=== PATIENT | male | born 1960 | race Hispanic/Latino ===

== ENCOUNTER 2021-05-16 11:48 | Outpatient (CLI) | payer BC | END 2021-05-16 11:49 | disposition home or self-care (01) | LOC: SCSRAD 11:48 | PROVIDERS: ATTEND Nurse Practitioner Family | DX: M25.552 Pain in left hip (principal) | CPT/HCPCS: 72170 ==

== ENCOUNTER 2022-08-14 09:58 | Outpatient (CLI) | payer BC | END 2022-08-14 09:59 | disposition home or self-care (01) | LOC: SCSMRI 09:58 | PROVIDERS: ATTEND Family Medicine | DX: M51.16 Intervertebral disc disorders with radiculopathy, lumbar region (principal); M47.817 Spondylosis without myelopathy or radiculopathy, lumbosacral region | CPT/HCPCS: 72148 ==

== ENCOUNTER 2022-10-09 08:36 | Outpatient (CLI) | payer BC ==
[2022-10-09 09:19] LABS: Hemoglobin 14.5 g/dL (13.5-17.5); Mean Corpuscular HGB CONC 32.7 g/dL (32.0-36.0); Mean Corpuscular Volume 82.5 fl (81.2-95.1); Mean Platelet Volume 10.4 fl (7.4-10.4); Platelet Count 323 10x3/uL (150-450); RBC Distribution Width 15.3 % (11.5-14.5); Red Blood Cell (RBC) Count 5.37 10x6/uL (4.32-5.72)
[2022-10-09 09:40] LABS: PTT 52.7 sec (22.0-33.0); Prothrombin Time 10.9 sec (9.5-12.1)
[2022-10-09 09:53] LABS: Anion Gap 14 mmol/L (10-20); BUN (Urea Nitrogen) 13 mg/dL (8.4-25.7); Calc. Creatinine Clearance 0 mL/min (70-130); Calcium 9.3 mg/dL (7.8-10.44); Carbon Dioxide 24 mmol/L (23-31); Chloride 105 mmol/L (98-107); Estimated GFR 98; Glucose 90 mg/dL (80-115); Potassium 4.1 mmol/L (3.5-5.1); Sodium 139 mmol/L (136-145)
== END 2022-10-09 08:37 | disposition home or self-care (01) ==
LOC: LABBT 08:36
PROVIDERS: ATTEND Surgery
DX: Z01.818 Encounter for other preprocedural examination (principal); M51.26 Other intervertebral disc displacement, lumbar region; M48.062 Spinal stenosis, lumbar region with neurogenic claudication; M54.16 Radiculopathy, lumbar region
CPT/HCPCS: 80048; 85027; 85610; 85730; 93005; 93010

== ENCOUNTER 2022-10-13 10:07 | Observation (INO) | payer BC ==
[2022-10-12 10:04] VITALS: BMI 30.5
[2022-10-13] MEDS ORDERED: Vancomycin 1 GM VIAL ONE (12:35)
[2022-10-13] MEDS ORDERED: Thrombin 5000 UNITS/5 ML VIAL ONE (12:35)
[2022-10-13] MEDS ORDERED: HYDROmorphone 0.5 MG/0.5 ML SYRINGE ONE (12:39)
[2022-10-13] MEDS ORDERED: fentaNYL PF 100 MCG/2 ML SYRINGE ONE (12:39)
[2022-10-13] MEDS ORDERED: CEFAZOLIN 2 GM VIAL ONE (12:42)
[2022-10-13] MEDS ORDERED: Sodium Chloride 0.9% 100 ML ONE (12:42)
[2022-10-13] MEDS ORDERED: Lidocaine 1% PF 5 ML VIAL ONE (12:51)
[2022-10-13] MEDS ORDERED: Glycopyrrolate 0.2 MG/ML 5 ML SYRINGE ONE (12:51)
[2022-10-13] MEDS ORDERED: ePHEDrine 50 MG/ML VIAL ONE (12:51)
[2022-10-13] MEDS ORDERED: Ketorolac Tromethamine 30 MG/ML VIAL ONE (12:51)
[2022-10-13] MEDS ORDERED: Ondansetron PF 4 MG/2 ML Vial ONE (12:51)
[2022-10-13] MEDS ORDERED: PHENYLEPHRINE-NS 100 MCG/ML 10 ML SYRINGE ONE (12:51)
[2022-10-13] MEDS ORDERED: Dexamethasone 20 MG/5 ML VIAL ONE (12:51)
[2022-10-13] MEDS ORDERED: PROPOFOL 200 MG/20 ML VIAL ONE (12:51)
[2022-10-13] MEDS ORDERED: Rocuronium Bromide 10 MG/ML (10ML VIAL) ONE (12:51)
[2022-10-13] MEDS ORDERED: SUGAMMADEX SODIUM 200 MG/2 ML VIAL ONE (14:38)
[2022-10-13] MEDS ORDERED: Morphine 2 MG/ML VIAL SLOW IVP PRN (15:20)
[2022-10-13] MEDS ORDERED: Acetaminophen 325 MG TAB PO PRN (15:20)
[2022-10-13] MEDS ORDERED: diphenhydrAMINE 25 MG CAP PO PRN (15:20)
[2022-10-13] MEDS ORDERED: traMADol HCl 50 MG TAB PO PRN (15:20)
[2022-10-13] MEDS ORDERED: Ondansetron PF 4 MG/2 ML Vial IVP PRN (15:20)
[2022-10-13] MEDS ORDERED: Acetaminophen/Codeine 30-300mg Tablet PO PRN (15:20)
[2022-10-13] MEDS ORDERED: tiZANidine HCl 4 MG TAB PO PRN (15:22)
[2022-10-13] MEDS ORDERED: hydrALAZINE 20 MG/ML VIAL SLOW IVP PRN (15:22)
[2022-10-13] MEDS ORDERED: CEFAZOLIN 2 GM in Sodium Chloride 0.9% 100 ML IVPB SCH (15:30)
[2022-10-13] MEDS ORDERED: FENTANYL 50 MCG/ML 1 ML VIAL ONE (16:12)
[2022-10-13] MEDS: Sodium Chloride 0.9% 1,000 ML IV SCH (16:55)
[2022-10-13] MEDS: HYDROcodone/Acetaminophen 7.5/325 mg Tablet PO PRN (18:32)
[2022-10-13] MEDS: CEFAZOLIN 2 GM in Sodium Chloride 0.9% 100 ML IVPB SCH (18:33)
[2022-10-13] MEDS: Lisinopril 20 MG TAB PO SCH (20:38)
[2022-10-14] MEDS: HYDROcodone/Acetaminophen 7.5/325 mg Tablet PO PRN ×2 (02:35→09:51)
[2022-10-14] MEDS: CEFAZOLIN 2 GM in Sodium Chloride 0.9% 100 ML IVPB SCH (02:36)
[2022-10-14 05:06] VITALS: TEMP 97.7
[2022-10-14 09:11] VITALS: BP 152/65
[2022-10-14] MEDS: Sodium Chloride 0.9% 1,000 ML IV SCH (09:48)
[2022-10-14] MEDS: Lisinopril 20 MG TAB PO SCH (09:49)
== END 2022-10-14 12:14 | disposition home or self-care (01) ==
LOC: SDC 10:07 → SURG B 15:20
PROVIDERS: ADMIT Surgery; ATTEND Surgery
PROC: 01NB0ZZ Release Lumbar Nerve, Open Approach (ICD-10-PCS; principal; 2022-10-13)
PROC: 0SB20ZZ Excision of Lumbar Vertebral Disc, Open Approach (ICD-10-PCS; 2022-10-13)
DX: M48.061 Spinal stenosis, lumbar region without neurogenic claudication (principal); M51.17 Intervertebral disc disorders with radiculopathy, lumbosacral region; I10 Essential (primary) hypertension; F17.210 Nicotine dependence, cigarettes, uncomplicated; Z79.899 Other long term (current) drug therapy
CPT/HCPCS: J1100; J1170; J1885; J2405; J2704; J3010; J3370; J3490; J7050